=== PATIENT | female | born 1990 | race Caucasian/White ===

== ENCOUNTER 2022-06-03 03:17 | Emergency (ER) | payer OTHER ==
[~2022-06-03] VITALS: Ht 162.6 cm; Wt 70.5 kg
[2022-06-03 03:19] VITALS: BP 140/87
== END 2022-06-03 04:03 | disposition left against medical advice (07) ==
LOC: EMS 03:22
DX: Z53.21 Procedure and treatment not carried out due to patient leaving prior to being seen by health care provider (principal)